=== PATIENT | female | born 1960 | race Caucasian/White ===

== ENCOUNTER → 2016-10-09 | Outpatient (CLI) | payer OTHER | LOC: FIMAGING 10:00 | PROVIDERS: ATTEND Nurse Practitioner Women's Health | DX: Z12.31 Encounter for screening mammogram for malignant neoplasm of breast (principal); Z80.3 Family history of malignant neoplasm of breast | CPT/HCPCS: G0202 ==

== ENCOUNTER → 2016-10-14 | Outpatient (CLI) | payer OTHER | LOC: FIMAGING 12:27 | PROVIDERS: ATTEND Nurse Practitioner Women's Health | DX: R92.0 Mammographic microcalcification found on diagnostic imaging of breast (principal) | CPT/HCPCS: G0206 ==

== ENCOUNTER → 2017-04-04 | Outpatient (CLI) | payer OTHER | LOC: FIMAGING 13:36 | PROVIDERS: ATTEND Nurse Practitioner Women's Health | DX: Z12.31 Encounter for screening mammogram for malignant neoplasm of breast (principal) ==

== ENCOUNTER → 2018-01-31 | Outpatient (CLI) | payer OTHER | LOC: FIMAGING 10:52 | PROVIDERS: ATTEND Internal Medicine | DX: R07.89 Other chest pain (principal) ==

== ENCOUNTER → 2018-09-13 | Outpatient (CLI) | payer OTHER | LOC: FIMAGING 12:22 ==